=== PATIENT | male | born 1955 | race Caucasian/White ===

== ENCOUNTER 2016-06-21 15:12 | Emergency (ER) | payer OTHER ==
--- NOTE | ~2016-06-21 | CR126 ---
[facility]. [facility] A Service of [facility] & [facility] RADIOLOGY TEXT RESULTS PATIENT: MANOLO PENNY LOCATION: SED : 59 UNIT #: [id number] AGE: [address]: Susie Jalloh APRN SEX: M ORDER DR: [id number] [place] [id number] E MR#: [id number] Acc #: [id number] NAME: MANOLO PENNY : 1955 SEX: M STUDY DATE/TIME: 06/21/2016 14:51 UNIT: SED ROOM: STUDY DESCRIPTION: CR Foot Complete Min 3 View Lt Attending Physician: Susie Jalloh A.P.R.N. Ordering Physician: Susie Jalloh A.P.R.N. Primary Care Physician: Isael Marroquin M.D. MEDICAL IMAGING REPORT This report is preliminary unless electronic signature is present. EXAM Left foot, 3 views. HISTORY Foot pain today after fall and laceration. FINDINGS 3 views of the left foot demonstrate soft tissue swelling along the medial margin of the first MTP joint. Zjtu-cr-syupcasp degenerative changes at the first MTP joint. Satisfactory bone alignment. Moderate sized posterior and plantar calcaneal spurs. IMPRESSION 1. Soft tissue swelling along the medial margin of the first MTP joint. Upcd-jq-zgsgsdiw degenerative changes at the first MTP joint. 2. No fracture, dislocation or opaque soft tissue foreign body. Dictated by... Gautam Glasgow M.D. THIS IS AN ELECTRONICALLY VERIFIED REPORT Gautam Glasgow M.D. at 06/21/2016 11:16 PM PETER/brian TD: 06/21/2016 17:51 JOB #: [id number] MEDICAL IMAGING REPORT Page 1 of 1
--- NOTE | ~2016-06-21 | CR252 ---
[facility]. [facility] A Service of [facility] RADIOLOGY TEXT RESULTS PATIENT: AMNOLO PENNY LOCATION: SED : 59 UNIT #: [id number] AGE: [address]: Susie Jalloh APRN SEX: M ORDER DR: [id number] [place] [id number] E MR#: [id number] Acc #: [id number] NAME: MANOLO PENNY : 1955 SEX: M STUDY DATE/TIME: 06/21/2016 14:51 UNIT: SED ROOM: STUDY DESCRIPTION: CR Tibia and Fibula 2 Views Lt Attending Physician: Susie Jalloh A.P.R.N. Ordering Physician: Susie Jalloh A.P.R.N. Primary Care Physician: Isael Marroquin M.D. MEDICAL IMAGING REPORT This report is preliminary unless electronic signature is present. EXAM Left tibia and fibula, AP and lateral. HISTORY Leg pain and laceration after fall today. FINDINGS 2 views of the left tibia and fibula demonstrate satisfactory bone alignment. No fracture or dislocation or abnormal sclerosis. There is a 2 mm punctate opacity in the soft tissues along the posteromedial margin of the mid lower leg near the level of reported pain. This could be an incidental soft tissue calcification or opaque foreign body. There is a metal staple in the proximal tibial metaphysis. Degenerative changes in the knee. IMPRESSION 1. No fracture. 2. Satisfactory bone alignment. 3. 2 mm punctate density in the soft tissues along the posteromedial margin of the mid lower leg near the level of reported discomfort. This could be an incidental soft tissue calcification, versus opaque foreign body. 4. Metal staple in the proximal tibial metaphysis. Dictated by... Gautam Glasgow M.D. THIS IS AN ELECTRONICALLY VERIFIED REPORT Gautam Glasgow M.D. at 06/21/2016 11:17 PM PETER/brian [facility] A Service of [facility] RADIOLOGY TEXT RESULTS PATIENT: MANOLO PENNY LOCATION: [facility] : 59 UNIT #: [id number] AGE: [address]: Susie Jalloh APRN SEX: M ORDER DR: TD: 06/21/2016 17:52 JOB #: [id number] MEDICAL IMAGING REPORT Page 1 of 1
[~2016-06-21 15:12] MED LIST: ALBUTEROL17 GM; ALBUTEROL17 GM INH; AMITRYPTYLINE PO; ASPIRIN ENTERI325 M1; ASPIRIN81 M1 PO; AUGMENTIN400 MG PO; BENZONATATE; BENZONATATE PO; BP MED; CLINDAMYCIN HC300 MG PO; DIABETES MED; GABAPENTIN300 MG PO; GLIPIZIDE10 MG PO; GLIPIZIDE2.5 MG/BO1; GLUCOPHAGE500 MG PO; GLUCOTROL PO; GLUCOTROL XL PO; HYDROCODON-ACE1 EAC5; HYDROCODON-ACE1 EACH PO; IBUPROFEN; INDOMETHACIN25 MG PO; LANTUS100 U/ML; LANTUS100 U/ML SUBQ; LEVEMIR100 U/ML SUBQ; LISINOPRIL PO; LISINOPRIL10 MG PO; LODINE500 M1 PO; LOPID600 MG PO; LORTAB 10/500 T1 TAB PO; LORTAB 5/500 TA1 TA1 PO; METFORMIN HCL500 M1; METFORMIN HCL500 M1 PO; METFORMIN PO; MOBIC15 MG PO; NITROGYLCERIN SUBLINGUAL; NITROSTAT0.4 MG SL; PHENERGAN PO; PRINIVIL10 MG PO; PROAIR HFA8.5 GM IH; ROBITUSSIN A-C S5 ML; TRAMADOL HCL50 M1 PO; TYLOX 5/500 CAP1 CAP PO; ULTRAM PO; VICODIN 5/1 TAB 5/50 PO; VOLTAREN75 MG PO; ZANAFLEX PO; ZITHROMAX1 G/PKT PO
== END 2016-06-21 17:04 | disposition home or self-care (01) ==
LOC: SED 15:12
DX: S91.312A Laceration without foreign body, left foot, initial encounter (principal); Z79.899 Other long term (current) drug therapy; Z87.891 Personal history of nicotine dependence; Z23 Encounter for immunization; W45.8XXA Other foreign body or object entering through skin, initial encounter; Y92.098 Other place in other non-institutional residence as the place of occurrence of the external cause
CPT/HCPCS: 12001; 29515; 73590; 73630; 90471; 90715; 99283

== ENCOUNTER 2016-08-17 14:39 | Emergency (ER) | payer OTHER ==
--- NOTE | ~2016-08-17 | CR243 ---
[facility] A Service of [facility] & [facility] RADIOLOGY TEXT RESULTS PATIENT: MANOLO PENNY LOCATION: SED : 59 UNIT #: [id number] AGE: [address]: BIANCA ABDI SEX: M ORDER DR: [id number] [place] [id number] E MR#: [id number] Acc #: [id number] NAME: MANOLO PENNY : 1955 SEX: M STUDY DATE/TIME: 08/17/2016 16:19 UNIT: SED ROOM: STUDY DESCRIPTION: CR Thoracic Spine 3 Views Attending Physician: Bianca Abdi Aprn Ordering Physician: Bianca Abdi Aprn Primary Care Physician: Isael Marroquin M.D. MEDICAL IMAGING REPORT This report is preliminary unless electronic signature is present. EXAM Thoracic spine, 3 views. HISTORY Low back pain, injured back catching a casket August 05. COMPARISON 10/15/2014 FINDINGS Routine views of thoracic spine demonstrates czdw-vj-eacddcbv multilevel degenerative changes mid thoracic spine with some disc space narrowing, sclerosis and marginal hypertrophic change. No fracture. No lytic or blastic lesions. Pedicles unremarkable. Mild levocurvature. IMPRESSION Mild to moderate mid thoracic degenerative disc changes. No acute findings. No change from 10/15/2014. Dictated by... Rylie Tejeda M.D. THIS IS AN ELECTRONICALLY VERIFIED REPORT Rylie Tejeda M.D. at 08/17/2016 9:10 PM Nina TD: 08/17/2016 18:50 JOB #: [id number] MEDICAL IMAGING REPORT Page 1 of 1
--- NOTE | ~2016-08-17 | CR181 ---
[facility] A Service of [facility] RADIOLOGY TEXT RESULTS PATIENT: MANOLO PENNY LOCATION: SED : 59 UNIT #: [id number] AGE: [address]: BIANCA ABDI SEX: M ORDER DR: [id number] [place] [id number] E MR#: [id number] Acc #: [id number] NAME: MANOLO PENNY : 1955 SEX: M STUDY DATE/TIME: 08/17/2016 16:19 UNIT: SED ROOM: STUDY DESCRIPTION: CR Lumbar Spine 2 or 3 Views Attending Physician: Bianca Abdi Aprn Ordering Physician: Bianca Abdi Aprn Primary Care Physician: Isael Marroquin M.D. MEDICAL IMAGING REPORT This report is preliminary unless electronic signature is present. EXAM Lumbar spine, 3 views. HISTORY Low back pain radiating to left leg since August 05, tried to catch a casket and pulled back. COMPARISON Lumbar spine films, 10/15/2014. FINDINGS AP, lateral and coned lateral views of the lumbar spine demonstrates multilevel degenerative disc disease most pronounced L3-4, L4-5 with disc space narrowing, sclerosis and marginal hypertrophic change. No acute fracture. No spondylolysis or spondylolisthesis. Lower lumbar spine facet arthropathy. Surgical clips right upper quadrant. IMPRESSION Multilevel degenerative disc disease, lower lumbar spine facet arthropathy. No change from 10/15/2014. Dictated by... Rylie Tejeda M.D. THIS IS AN ELECTRONICALLY VERIFIED REPORT Rylie Tejeda M.D. at 08/17/2016 9:10 PM ADIA/brian TD: 08/17/2016 18:46 JOB #: [id number] MEDICAL IMAGING REPORT [facility] A Service [facility] RADIOLOGY TEXT RESULTS PATIENT: MANOLO PENNY LOCATION: SED : 59 UNIT #: [id number] AGE: [address]: BIANCA ABDI SEX: M ORDER DR: Page 1 of 1
== END 2016-08-17 18:14 | disposition home or self-care (01) ==
LOC: SED 14:39
DX: S39.012A Strain of muscle, fascia and tendon of lower back, initial encounter (principal); M54.42 Lumbago with sciatica, left side; F17.210 Nicotine dependence, cigarettes, uncomplicated; X50.0XXA Overexertion from strenuous movement or load, initial encounter; Y92.9 Unspecified place or not applicable
CPT/HCPCS: 72072; 72100; 96372; 99283; J1885

== ENCOUNTER 2016-09-11 10:10 | Emergency (ER) | payer OTHER ==
[~2016-09-11] VITALS: Ht 175.3 cm; Wt 98.4 kg
--- NOTE | ~2016-09-11 | CR150 ---
[facility] A Service [facility] RADIOLOGY TEXT RESULTS PATIENT: MANOLO PENNY LOCATION: SED : 59 UNIT #: [id number] AGE: [address]: Addy Jackson MD SEX: M ORDER DR: [id number] [place] [id number] E MR#: [id number] Acc #: [id number] NAME: MANOLO PENNY : 1955 SEX: M STUDY DATE/TIME: 09/11/2016 UNIT: SED ROOM: STUDY DESCRIPTION: CR Hip Min 2 Views Lt Attending Physician: Addy Jackson M.D. Ordering Physician: [facility] [employer] Primary Care Physician: Isael Marroquin M.D. MEDICAL IMAGING REPORT This report is preliminary unless electronic signature is present. EXAM Left hip 09/11/2016 1102 hours HISTORY 61-year-old man injured his left hip while trying to catching a casket at a on 08/05/2016. Persistent left hip pain radiating down left leg. COMPARISON CT abdomen and pelvis 02/22/2016 FINDINGS AP pelvis and frog lateral view left hip demonstrate no fracture. Bone density is normal. There are small calcifications at the superolateral acetabuli bilaterally. There is mild sclerotic change of both sacroiliac joints, similar to 02/22/2016. There is suggested degenerative disc disease at L5-S1 as was seen on 02/22/2016. IMPRESSION 1. No hip joint space loss or fracture. 2. Mild degenerative change at the sacroiliac joints and the lumbosacral junction. 1. Dictated by... Shannan Cunningham M.D. THIS IS AN ELECTRONICALLY VERIFIED REPORT Shannan Cunningham M.D. at 09/11/2016 9:02 PM SATHISH/nicholas TD: 09/11/2016 16:28 JOB #: [id number] [facility] A Service [facility] RADIOLOGY TEXT RESULTS PATIENT: MANOLO PENNY LOCATION: [facility] #: [id number] : 59 UNIT #: [id number] AGE: [address]: Addy Jackson MD SEX: M ORDER DR: MEDICAL IMAGING REPORT Page 1 of 1
== END 2016-09-11 12:18 | disposition home or self-care (01) ==
LOC: SED 10:10
DX: M25.552 Pain in left hip (principal); M54.5 Low back pain; I25.10 Atherosclerotic heart disease of native coronary artery without angina pectoris; J44.9 Chronic obstructive pulmonary disease, unspecified; F17.200 Nicotine dependence, unspecified, uncomplicated; Z90.49 Acquired absence of other specified parts of digestive tract; Z79.899 Other long term (current) drug therapy
CPT/HCPCS: 73502; 96372; 99283; J1885

== ENCOUNTER 2016-11-12 18:01 | Emergency (ER) | payer OTHER ==
[~2016-11-12] VITALS: Ht 175.3 cm; Wt 77.1 kg
--- NOTE | ~2016-11-12 | CR150 ---
[facility] A Service of [facility] RADIOLOGY TEXT RESULTS PATIENT: MANOLO PENNY LOCATION: SED : 59 UNIT #: [id number] AGE: [address]: Andrei Ortiz MD SEX: M ORDER DR: [id number] [address] [address] [id number] E MR#: [id number] Acc #: [id number] NAME: MANOLO PENNY : 1955 SEX: M STUDY DATE/TIME: 11/12/2016 19:33 UNIT: SED ROOM: STUDY DESCRIPTION: CR Hip Min 2 Views Lt Attending Physician: Andrei Ortiz M.D. Ordering Physician: Bertha Phan M.D. Primary Care Physician: Isael Marroquin M.D. MEDICAL IMAGING REPORT This report is preliminary unless electronic signature is present. EXAM Left hip series dated 11/12/2016. COMPARISON Left hip series dated 09/11/2016. HISTORY Status post fall down the stairs, dizziness. Patient had the left side of the face with laceration to the left eye, chest pain, shortness of air and weakness today. Chronic left hip pain since July 2016. FINDINGS Two views of the left hip were obtained. No acute displaced fracture or dislocation. Punctate calcification is noted superolateral to the acetabulum on both sides, slightly more prominent on the left. It is stable when compared to the prior study from 2 months ago. Remaining visualized pelvis does not demonstrate any acute displaced fracture. There is linear lucency noted in the region of the bilateral superior pubic rami extending towards the acetabulum, probably related to vascular markings or summation of shadows. Nondisplaced fracture is lower in the differential consideration. Dictated by... Kennedi Mercedes M.D. THIS IS AN ELECTRONICALLY VERIFIED REPORT Kennedi Mercedes M.D. at 11/13/2016 5:05 PM CPR/bd TD: 11/13/2016 07:11 JOB #: [id number] MEDICAL IMAGING REPORT [facility] A Service of [facility] & [facility] RADIOLOGY TEXT RESULTS PATIENT: MANOLO PENNY LOCATION: SED : 59 UNIT #: [id number] AGE: [address]: Andrei Ortiz MD SEX: M ORDER DR: Page 1 of 1
--- NOTE | ~2016-11-12 | EKG ---
PATIENT: MANOLO PENNY UNIT #: [id number] Ventricular Rate: 96 BPM Atrial Rate: 96 BPM P-R Interval: 154 ms QRS Duration: 84 ms Q-T Interval: 332 ms QTC Calculation(Bezet): 419 ms P [place]: 17 degrees Calculated R [place]: 34 degrees Calculated T [place]: 34 degrees Diagnosis Line: Normal sinus rhythm Diagnosis Line: Normal ECG Diagnosis Line: When compared with ECG of 08-SEP-2015 15:29, Diagnosis Line: No significant change was found Diagnosis Line: Confirmed by ELY CLOUD MD ([id number]) on Diagnosis Line: 11/14/2016 9:47:26 AM INTERPRETING MD: PEDRO LUIS NORMAN
--- NOTE | ~2016-11-12 | CT101 ---
[facility] A Service of [facility] RADIOLOGY TEXT RESULTS PATIENT: MANOLO PENNY LOCATION: SED : 59 UNIT #: [id number] AGE: [address]: Andrei Ortiz MD SEX: M ORDER DR: [id number] [place] [id number] E MR#: [id number] Acc #: [id number] NAME: MANOLO PENNY : 1955 SEX: M STUDY DATE/TIME: 11/12/2016 19:19 UNIT: SED ROOM: STUDY DESCRIPTION: CT Maxillofacial Area Wo Cont Attending Physician: Andrei Ortiz M.D. Ordering Physician: Bertha Phan M.D. Primary Care Physician: Isael Marroquin M.D. MEDICAL IMAGING REPORT This report is preliminary unless electronic signature is present. EXAM CT scan of the facial bones without contrast, 11/12/2016. HISTORY Facial pain status post fall down stairs today, hit head on a board resulting in blurred vision. Left side facial pain, laceration left eye with headache. TECHNIQUE Spiral CT was performed through the facial bones without intravenous contrast administration. Coronal reconstructions were then performed through the same region. This CT exam was performed with one or more of the following radiation dose reduction techniques: Automatic exposure control, adjustment of mA and/or kV according to patient size, and iterative reconstruction. FINDINGS There is no CT evidence of facial bone fracture. The orbits are normal in appearance. There is mucosal thickening in the ethmoid and maxillary sinuses. Polyps or retention cysts are seen in the right maxillary sinus. IMPRESSION 1. No CT evidence of facial bone fracture. 2. Maxillary and ethmoid sinusitis. Dictated by... Denny Bocanegra M.D. THIS IS AN ELECTRONICALLY VERIFIED REPORT Denny Bocanegra M.D. at 11/13/2016 10:39 AM KRT/lenny TD: 11/13/2016 07:05 [facility] A Service of [facility] RADIOLOGY TEXT RESULTS PATIENT: MANOLO PENNY [id number] [birth year] UNIT #: [id number] AGE: [address]: Andrei Ortiz MD SEX: M ORDER DR: JOB #: [id number] MEDICAL IMAGING REPORT Page 1 of 1
--- NOTE | ~2016-11-12 | CT71 ---
[facility] A Service of [facility] & [facility] RADIOLOGY TEXT RESULTS PATIENT: MANOLO PENNY LOCATION: SED : 59 UNIT #: [id number] AGE: [address]: Andrei Ortiz MD SEX: M ORDER DR: [id number] [place] [id number] E MR#: [id number] Acc #: [id number] NAME: MANOLO PENNY : 1955 SEX: M STUDY DATE/TIME: 11/12/2016 19:19 UNIT: SED ROOM: STUDY DESCRIPTION: CT Head Wo Contrast Attending Physician: Andrei Ortiz M.D. Ordering Physician: Bertha Phan M.D. Primary Care Physician: Isael Marroquin M.D. MEDICAL IMAGING REPORT This report is preliminary unless electronic signature is present. EXAM CT head without contrast dated 11/12/2016. COMPARISON CT head without contrast dated 09/26/2010. HISTORY Patient fell down the stairs and hit head today followed by left side facial pain and laceration to the left eye. TECHNIQUE CT of the head was obtained without contrast in the axial plane as per the protocol. This CT exam was performed with one or more of the following radiation dose reduction techniques: Automatic exposure control, adjustment of mA and/or kV according to patient size, and iterative reconstruction. FINDINGS No acute intracranial hemorrhage, hydrocephalus, space-occupying intracranial mass, mass effect or midline shift. Patient is known to have laceration above the left eye which is difficult to visualize in this modality. It is probably present along the superolateral aspect of the left orbit without any associated foreign body or significant hematoma. Mild paranasal sinus mucosal thickening is seen with nasal septal deviation to the right. Mastoid air cells are well-aerated. Bones, orbits with the ocular structures do not demonstrate any significant abnormality. IMPRESSION 1. Brain is unremarkable. No acute intracranial abnormality. 2. Patient is known to have laceration above the left eye which is difficult to visualize in this modality. It is probably present along the superolateral aspect of the left orbit without any STS. [facility] A Service of [facility] & [facility] RADIOLOGY TEXT RESULTS PATIENT: MANOLO PENNY LOCATION: SED : 59 UNIT #: [id number] AGE: [address]: Andrei Ortiz MD SEX: M ORDER DR: associated foreign body or significant hematoma. 3. Mild paranasal sinus mucosal thickening with nasal septal deviation to the right. Dictated by... Kennedi Mercedes M.D. THIS IS AN ELECTRONICALLY VERIFIED REPORT Kennedi Mercedes M.D. at 11/13/2016 5:07 PM CPR/bd TD: 11/13/2016 07:15 JOB #: [id number] MEDICAL IMAGING REPORT Page 1 of 1
--- NOTE | ~2016-11-12 | CR71 ---
[facility] A Service of [facility] RADIOLOGY TEXT RESULTS PATIENT: MANOLO PENNY LOCATION: SED : 59 UNIT #: [id number] AGE: [address]: Andrei Ortiz MD SEX: M ORDER DR: [id number] [place] [id number] E MR#: [id number] Acc #: [id number] NAME: MANOLO PENNY : 1955 SEX: M STUDY DATE/TIME: 11/12/2016 19:24 UNIT: SED ROOM: STUDY DESCRIPTION: CR Chest Single View Attending Physician: Andrei Ortiz M.D. Ordering Physician: Bertha Phan M.D. Primary Care Physician: Isael Marroquin M.D. MEDICAL IMAGING REPORT This report is preliminary unless electronic signature is present. EXAM Single view of the chest dated 11/12/1978 19:24 hours. COMPARISON Chest 2 views dated 04/09/2016. HISTORY Dizziness, fell down the stairs and hit head on the board. Left-sided facial pain with laceration to the left eye. Blurry vision, headache, chest pain, shortness of air and weakness today. FINDINGS Single view of the chest was obtained. A single AP view of the chest shows both lungs to be clear. The heart is normal in size. The mediastinal contour is normal. No significant bone abnormalities are seen. IMPRESSION Normal AP chest. Dictated by... Kennedi Mercedes M.D. THIS IS AN ELECTRONICALLY VERIFIED REPORT Kennedi Mercedes M.D. at 11/13/2016 5:05 PM CPR/bd TD: 11/13/2016 07:07 JOB #: [id number] MEDICAL IMAGING REPORT [facility] A Service of [facility] RADIOLOGY TEXT RESULTS PATIENT: MANOLO PENNY LOCATION: SED : 59 UNIT #: [id number] AGE: [address]: Andrei Ortiz MD SEX: M ORDER DR: Page 1 of 1
[2016-11-12 18:36] LABS: BASOPHIL# 0.1 X10e3 (0-0.3); BASOPHIL% 0.6 % (0-2.5); EOSINOPHIL% 0.3 % (0.0-7.0); HEMATOCRIT 44.7 % (38.0-50.0); HEMOGLOBIN 15.4 gm/dL (13.0-16.0); LYMPHOCYTE# 1.4 X10e3 (1.0-3.5); LYMPHOCYTE% 12.8 % (17.0-45.0); MEAN CELL VOLUME 91.8 FL (83-96); MEAN CORPUSCULAR HEMOGLOBIN 31.5 PG (28-34); MEAN CORPUSCULAR HGB CONC 34.3 g/dL (30-36); MEAN PLATELET VOLUME 9.3 FL (6.5-11.5); MONOCYTE# 0.8 X10e3 (0-1.0); MONOCYTE% 6.8 % (3.0-12.0); NEUTROPHIL# 8.8 X10e3 (1.5-7.1); NEUTROPHIL% 79.5 % (40-75); PLATELET COUNT 226 X10e3 (140-420); RED BLOOD COUNT 4.87 X10e (3.90-5.60); RED CELL DISTRIBUTION WIDTH 13.6 % (11.0-15.5); WHITE BLOOD COUNT 11.1 X10e3 (4.0-10.5)
[2016-11-12 18:38] LABS: DIFF IND NO
[2016-11-12 18:45] LABS: PROTHROMBIN TIME (PATIENT) 11.7 SECONDS (9.5-12.4)
[2016-11-12 18:48] LABS: POC - CKMB 1.4 ng/mL (0.0-7.9); POC - MYOGLOBIN 57.3 ng/mL (0.0-169.0); POC - TROPONIN <0.05 ng/mL (<=0.05)
[2016-11-12 18:52] LABS: PARTIAL THROMBOPLASTIN TIME 28.4 SECONDS (25.6-38.1)
[2016-11-12 18:55] LABS: ALBUMIN SERUM 3.8 g/dL (3.5-5.0); ALCOHOL BLOOD <5 mg/dL (0); ALKALINE PHOSPHATASE 77 U/L (32-92); ALT (SGPT) 12 U/L (10-40); AST (SGOT) 15 U/L (10-42); BILIRUBIN, DIRECT 0.1 mg/dL (0.0-0.2); BILIRUBIN,INDIRECT 0.5 mg/dL (0.0-0.9); BILIRUBIN,TOTAL 0.6 mg/dL (0.2-2.0); BLOOD UREA NITROGEN 14 mg/dL (9-23); CALCIUM SERUM 9.2 mg/dL (8.4-10.2); CARBON DIOXIDE 22 mmol/L (22-31); CHLORIDE 98 mmol/L (100-111); CREATININE SERUM 0.8 mg/dL (0.6-1.4); GLOM FILT RATE Estimated 97.8 mL/min (>60); GLUCOSE FASTING 418 mg/dL (70-110); LIPASE 25 U/L (22-51); MAGNESIUM 1.7 mg/dL (1.6-3.0); POTASSIUM 3.7 mmol/L (3.5-5.1); SODIUM 128 mmol/L (135-145)
[2016-11-12 19:08] LABS: URINE SOURCE CLEAN CATCH
[2016-11-12 19:10] LABS: URINE APPEARANCE CLEAR; URINE BILIRUBIN NEG (NEG); URINE BLOOD 2+ (NEG); URINE COLOR YELLOW; URINE GLUCOSE 300 MG/DL (NORM); URINE KETONE NEG (NEG); URINE LEUKOCYTE ESTERASE NEG (NEG); URINE NITRATE NEG (NEG); URINE PROTEIN NEG (NEG); URINE SPECIFIC GRAVITY <=1.005 (1.003-1.035); URINE UROBILINOGEN 0.2 MG/DL (NORM)
[2016-11-12 19:12] LABS: MICRO INDICATED? YES
[2016-11-12 19:17] LABS: CULTURE INDICATED? NO; URINE BACTERIA NEG (NEG); URINE SQUAMOUS EPITHELIAL CELL OCCAS /[HPF]; URINE WBC 0-2 /[HPF] (0-5)
[2016-11-12 19:21] LABS: AMPHETAMINE NEG (NEG); BARBITURATES NEG (NEG); BENZODIAZEPINES NEG (NEG); COCAINE NEG (NEG); MARIJUANA POS (NEG); OPIATES NEG (NEG); TRICYCLIC ANTIDEPRESSANTS NEG (NEG); U METHADONE NEG (NEG)
[2016-11-12 20:36] LABS: POC - CKMB 1.3 ng/mL (0.0-7.9); POC - MYOGLOBIN 54.6 ng/mL (0.0-169.0); POC - TROPONIN <0.05 ng/mL (<=0.05)
== END 2016-11-12 21:10 | disposition home or self-care (01) ==
LOC: SED 18:01
PROVIDERS: Emergency Medicine; Student in an Organized Health Care Education/Training Program
DX: S06.0X0A Concussion without loss of consciousness, initial encounter (principal); S01.112A Laceration without foreign body of left eyelid and periocular area, initial encounter; J32.9 Chronic sinusitis, unspecified; R73.9 Hyperglycemia, unspecified; I10 Essential (primary) hypertension; Z79.899 Other long term (current) drug therapy; W19.XXXA Unspecified fall, initial encounter
CPT/HCPCS: 12011; 36415; 70450; 70486; 71010; 73502; 80048; 80076; 80307; 81003; 82553; 82947; 83690; 83735; 83874; 83880; 84484; 85025; 85610; 85730; 93005; 96360; 99284; G0480